=== PATIENT | male | born 1935 | race Caucasian/White ===

== ENCOUNTER → 2016-12-10 | Day surgery (SDC) | payer OTHER, MEDICARE ==
[~2016-12-10] VITALS: Ht 170.2 cm; Wt 73.9 kg
[~2016-12-10] MED LIST: ASPI-COR81 M1 PO; BENAZEPRIL HCL10 MG PO; PRAVASTATIN SOD40 MG PO; PROPRANOLOL HCL40 MG PO; VITABESE1 CAP PO
--- NOTE | 2016-12-10 08:30 | Operative Report ---
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 A lid speculum was placed to retract the lids. The case was begun by making 2 partial-thickness corneal relaxing incisions at 97. A temporal incision with a 2.4 mm keratome. The eye was stabilized with a Torre ring during this incision. 1 mL of non-preserved lidocaine was introduced into the anterior chamber to provide anesthesia. The anterior chamber was then filled and deepened with viscoelastic. A curvilinear capsulorrhexis was achieved using a 30-gauge needle and is a cystotome and capsulorrhexis was finished using a Utrata forceps. A second or paracentesis incision was made temporally with a 1 mm MVR blade. The lens was then hydrodissected with balanced salt solution and found to be rotatable. The lens was emulsified using phacoemulsification and a modified four-quadrant cracking technique. The residual cortical material was removed using automated irrigation and aspiration and as much of the anterior capsular rim was cleaned as well as possible. The posterior capsule was cleaned first with the automated machine on a low setting and then manually with a Ronaldo squeegee. The capsular bag was deepened with viscoelastic. The lens a Akreos A ) 60 19.5 Diopter placed into the bag under direct visualization and rotated so that the haptics were at 12 and 6:00. Viscoelastic was then removed from the eye by flushing it out and then by automated irrigation and aspiration. Some viscoelastic was left in the anterior chamber. Attention was then turned to the iris. The iris is in a permanently dilated state due to past trauma. In order to reduce the size of the iris Miochol was instilled into the anterior chamber rising leave the nasal superior nasal and inferior nasal aspects of the iris did react to the Miochol and come down in size. The largest portion of largest and most nonreactive portion of the iris was the temporal aspect. Microforceps grasper was introduced into the eye and the iris was teased down from the angle into the pupil through multiple paracentesis sites that had been made at the beginning of the case to once again make the iris a small as possible this was pretty successful in inducing mostly round iris with the exception of straight temporally. The residual viscoelastic was removed from the eye using automated irrigation aspiration and aspiration tip was used to grasp the iris several times temporally and again drag it out towards the center. At the conclusion of this was approximately 4-4-1/2 mm pupil which was deemed to be adequate and so the original plan to switch the iris was abandoned Miostat was then placed into the anterior chamber to freeze the iris in place followed by a 10th of a cc of vancomycin for antibiotic prophylaxis. The eye was pressurized to a normal tone. The wounds were sealed by hydrating the stroma adjacent to them and the eye was left at a proper tone after the wounds were checked and found not to be leaking. The lid speculum was removed from the orbit. Antibiotic and steroid drops were placed on the eye and then the eye was shielded. Monitoring equipment was removed from the patient and the patient was removed from the operative suite to the holding area. The patient tolerated the procedure well and will be seen in the office tomorrow.
== END ==
LOC: STS 03:22
DX: H25.89 Other age-related cataract (principal); H57.04 Mydriasis; I10 Essential (primary) hypertension; M19.90 Unspecified osteoarthritis, unspecified site; Z79.82 Long term (current) use of aspirin
CPT/HCPCS: J2001; J2250; V2632